=== PATIENT | female | born 1980 | race Caucasian/White ===

== ENCOUNTER 2025-04-25 12:03 | Outpatient (AMB) | payer SELFPAY ==
--- NOTE | 2025-04-25 11:52 | MHC.PC.OV ---
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 Required: No Accompanied by: Self / Same As Patient Allergies No Known Allergies Allergy (Verified 04/25/25 12:09) Medication List - Last Reconciled 04/25/25 by Adrienne Kenny PA-C No Known Home Meds Tobacco use date assessed: 04/25/25 Dental Screening Dental Screen Date: 04/25/25 Did you have a dental visit in the last 12 months?: Yes Did you have a dental problem in the last 6 months where you did not have access to dental care?: No Was dental information given to patient?: Patient has dentist HPI establish care HPI Details The patient is a 44-year-old female presenting to establish a new primary care provider, for a routine health evaluation, emphasizing colon cancer screening due to a significant family history. Her father from colon cancer at age 58. She acknowledges her last comprehensive medical check-up was years ago but regularly attends appointments with a auto self service station attendant, dentist, and airline captain. Previously diagnosed with Mediterranean Anemia, iron supplementation has proven ineffective in managing her condition due to absorption issues. Her history of seizures, notably a grand mal seizure at age 9, was medically managed for a short duration without recurrence. The patient currently uses a Mirena IUD for contraception, slated for replacement soon. She has a childhood history of anemia requiring no current building rigger involvement. Her mother, a patient at the clinic, is treated for hypertension. There is a broad history of cancer within the family, with colon cancer explicitly noted. Social History - Family Status: Patient has four children. - Family Planning: Current use of Mirena IUD for contraception. - Health Maintenance: Regular appointments with auto self service station attendant, dentist, and airline captain. - Family Health Influence: Mother encourages cancer screening due to the patient's family history. [facility] Medical History Grand mal seizure Mediterranean anemia Class 1 obesity with body mass index (BMI) of 33.0 to 33.9 in adult Presence of Mirena IUD History of mammogram (~02/2025) Establishing care with new doctor, encounter for Family history of colon cancer Family History Father Diabetes Colon cancer Mother BP (high blood pressure) Social History Housing: House Alcohol intake: current Alcohol intake frequency: a few times a week Patient Tobacco Use Status: Never used Tobacco service: No Current occupational status: employed Cognitive needs: No Hearing needs: No Vision needs: Yes (rx glasses) Questionnaire PHQ-9 Over the last 2 weeks, how often have you been bothered by any of the following problems? 1. Little interest or pleasure in doing things: not at all 2. Feeling down, depressed, or hopeless: not at all 3. Trouble falling or staying asleep, or sleeping too much: not at all 4. Feeling tired or having little energy: not at all 5. Poor appetite or overeating: not at all 6. Feeling bad about yourself - or that you are a failure or have let yourself or your family down: not at all 7. Trouble concentrating on things, such as reading the newspaper or watching television: not at all 8. Moving or speaking so slowly that other people could have noticed. Or the opposite - being so fidgety or restless that you have been moving around a lot more than usual: not at all 9. Thoughts that you would be better off or of hurting yourself in some way: not at all Total score: 0 Depression Screening Interpretation: Negative Depression Screening Done: Yes 29059 - PHQ-9 Billing: Yes Source: Developed by Drs. Kvng Baires, Jessica Hurtado, Dylan Flores and colleagues, with an educational yamileth from [employer]. Thrive Questionnaire Date Thrive assessed: 04/25/25 I am a: Patient What is your living situation today?: I have a steady place to live Within the past 12 months, did the food you bought not last and you didn't have the money to get more?: Never true Within the past 12 months, did you worry whether your food would run out before you got money to buy more?: Never true Do you have trouble paying for medicines?: No Do you have trouble getting transportation to medical appointments?: No Do you have trouble paying your heating and electricity bill?: No Do you have trouble taking care of your child, family member or friend?: No Do you have trouble with day-to-day activities such as bathing, preparing meals, shopping, managing finances, etc.?: No Are you currently unemployed and looking for a job?: No Are you interested in more education?: No Please select the resources that you would like help with: None THRIVE Score: 0 AUDIT C Alcohol Use Questionnaire (AUDIT-C) 1. How often do you have a drink containing alcohol?: 2-3 times a week 2. How many drinks containing alcohol do you have on a typical day when you are drinking?: 1 or 2 3. How often do you have six or more drinks on one occasion?: Never Total Score: 3 Score Reviewed/Action Taken: No BHARATHI-7 AMB Questionnaire BHARATHI-7 Date BHARATHI - 7 assessed: 04/25/25 Feeling nervous, anxious, or on edge: 0 = Not at all Not being able to stop or control worryin = Not at all Worrying too much about different things: 0 = Not at all Trouble relaxin = Not at all Being so restless that it is hard to sit still: 0 = Not at all Becoming easily annoyed or irritable: 0 = Not at all Feeling afraid as if something awful might happen: 0 = Not at all Total BHARATHI-7 score (0-4 normal; 5-9 mild; 10-14 moderate; 15-21 severe): 0 Source: Developed by Drs. Kvng Baires, Jessica Hurtado, Dylan Flores and colleagues, with an educational yamileth from [employer]. BHARATHI-7 Assessment Billing BHARATHI-7 Assessment Tool: BHARATHI-7 Assessment 59622 Review of Systems Const Details: - Hematological: Reports Mediterranean Anemia. - Neurological: Denies further seizures since age 9. - Cardiovascular: Denies chest pain, shortness of breath. - Gastrointestinal: Denies changes in bowel habits, melena or hematochezia. - Musculoskeletal: Reports shortness of breath when climbing stairs, attributed to being out of shape. Physical exam (Primary Care) Vital Signs: Last Vital Signs Temp 97.8 F 04/25/25 11:55 Pulse 56 04/25/25 11:55 Resp 14 04/25/25 11:55 BP 122/62 04/25/25 11:55 Pulse Ox 99 04/25/25 11:55 Oxygen Delivery Method Room Air 04/25/25 11:55 Care Plan Goal for BP management: <130/90 at Goal BMI result Body Mass Index 33.6 BMI Assessment/Plan discussion: High BMI High, discussed plan: lifestyle, weight reduction, dietary, physical activity and alcohol moderation Tobacco/Smoking Status: Tobacco use Status Tobacco use date assessed 04/25/25 04/25/25 12:01 Patient Tobacco Use Status Never used Tobacco 04/25/25 12:01 PHQ-9: PHQ-9 Score PHQ-9: Total score 0 04/25/25 12:01 Depression Screening Interpretation: Negative Thrive Assessment: Date of Thrive Assessment Date Thrive assessed 04/25/25 04/25/25 12:01 Const Other: Appearance: Alert. Oriented X3. No acute distress. Head: Normal external exam. Normocephalic. Atraumatic. Eyes: Pupils are equal, round, and reactive to light. Extraocular movements intact. Conjunctiva and sclera normal. Eyelids normal. Ears: External auditory canal normal. Tympanic membranes normal. Canals are completely clear, no wax noted. Throat: Pharynx normal. Uvula midline. Moist mucous membranes. Neck: Normal inspection. Neck supple. Full range of motion. No adenopathy. Thyroid Normal. No meningeal signs. No neck mass noted. Cardiovascular: Normal heart rate and rhythm. Heart sound normal. No murmurs noted. Pulses normal throughout. Respiratory: No respiratory distress. Painless inspiration. Breath sounds normal. No wheezes/rales/rhonchi noted. Chest nontender. No accessory muscle usage noted or decreased air movement noted. Abdomen: Soft and nontender. Bowel sounds normal in all 4 quadrants. No distention noted. No organomegaly noted. No visible injury noted. Back: No costovertebral angle tenderness. Full range of motion noted. Skin: Skin warm and dry. Normal skin color. Normal skin turgor. No rashes/lesions/lacerations noted. Extremities: No lower extremity edema. Extremities exhibit normal range of motion. Extremities nontender. Neuro: Oriented X 3. No motor deficit. No sensory deficit. Reflexes normal. Coding Level of Care Code New Pt Level 4 (81506) Complex EM visit Add On G2211 Diagnoses Establishing care with new doctor, encounter for Z76.89 Family history of colon cancer Z80.0 Presence of Mirena IUD Z97.5 Mediterranean anemia D56.9 Grand mal seizure G40.409 Class 1 obesity with body mass index (BMI) of 33.0 to 33.9 in adult E66.811; Z68.33 Additional Codes PHQ-9 - 04856 - PHQ-9 Billing: Yes ([id number]) BHARATHI-7 Assessment Billing - BHARATHI-7 Assessment Tool: BHARATHI-7 Assessment 43284 ([id number]) Assessment & Plan Assessment & Plan (1) Establishing care with new doctor, encounter for: Code(s): Z76.89 - Persons encountering health services in other specified circumstances Category: Medical (2) Family history of colon cancer: Comment: Father at age 58 Code(s): Z80.0 - Family history of malignant neoplasm of digestive organs Category: Medical Plan: Refer to gastroenterology for a colonoscopy to address family history of colon cancer. (3) Presence of Mirena IUD: Code(s): Z97.5 - Presence of (intrauterine) contraceptive device Category: Social Hx Plan: Monitor and plan for the replacement of Mirena IUD in the coming year. Condition is chronic and stable will continue to monitor. (4) Mediterranean anemia: Code(s): D56.9 - Thalassemia, unspecified Category: Medical Plan: Conduct an iron panel and evaluate CBC to assess Mediterranean Anemia management. Potential referral to building rigger if severe anemia is confirmed. (5) Grand mal seizure: Comment: as a child Code(s): G40.409 - Other generalized epilepsy and epileptic syndromes, not intractable, without status epilepticus Category: Medical Plan: Monitor neurological status, no active management due to absence of recent episodes. Patient's last seizure was at age 9. Will continue to monitor. (6) Class 1 obesity with body mass index (BMI) of 33.0 to 33.9 in adult: Code(s): E66.811 - Obesity, class 1; Z68.33 - Body mass index [BMI] 33.0-33.9, adult Category: Medical Plan: Patient to improve diet and exercise regimen. Condition is chronic and stable continue to monitor. Plan Plan Patient was informed and verbally consented to the use of an ambient scribe for clinic note documentation during this visit. 1. Mediterranean Anemia Conduct an iron panel and evaluate CBC to assess Mediterranean Anemia management. Potential referral to building rigger if severe anemia is confirmed. 2. History Of Grand Mal Seizure Monitor neurological status, no active management due to absence of recent episodes. 3. Family History Of Colon Cancer Refer to gastroenterology for a colonoscopy to address family history of colon cancer. 4. Use Of Mirena Iud For Control Monitor and plan for the replacement of Mirena IUD in the coming year. During the visit, we discussed the patient's family history of colon cancer, particularly her father's case, which heightens her risk and necessitates early screening. I informed her of the importance of a colonoscopy given her familial predisposition. We reviewed her Mediterranean Anemia management, acknowledging the limitation of iron absorption and the necessary hematologic evaluation through additional laboratory work. The discussion also included the maintenance plan for her Mirena IUD, emphasizing the need for future replacement. I reassured the patient regarding her history of grand mal seizure, noting the absence of recurrence and explaining that current management involves monitoring for any potential future symptoms. Orders: Orders C Reactive Protein Today Z00.00 - Encounter for general adult medical examination without abnormal findings Complete Blood Count Auto Diff Today Z00.00 - Encounter for general adult medical examination without abnormal findings Comprehensive [place]. Panel Fast Today Z00.00 - Encounter for general adult medical examination without abnormal findings IRON PROFILE Today D64.9 - Anemia, unspecified Liver Panel Today Z00.00 - Encounter for general adult medical examination without abnormal findings Ferritin Today D64.9 - Anemia, unspecified TSH reflex Free T4 Today Z00.00 - Encounter for general adult medical examination without abnormal findings Vitamin D 25-OH Total Today Z00.00 - Encounter for general adult medical examination without abnormal findings Hemoglobin A1c Today Z00.00 - Encounter for general adult medical examination without abnormal findings Lipid Panel Today Z00.00 - Encounter for general adult medical examination without abnormal findings Vitamin B12 and Folate Today Z00.00 - Encounter for general adult medical examination without abnormal findings Magnesium Today Z00.00 - Encounter for general adult medical examination without abnormal findings Referrals Gastroenterology Referral Z12.11 - Encounter for screening for malignant neoplasm of colon, Z76.89 - Persons encountering health services in other specified circumstances, Z80.0 - Family history of malignant neoplasm of digestive organs, Z92.89 - Personal history of other medical treatment Medications: New levonorgestrel (Mirena) intrauterine Patient Instructions: - Schedule and attend a colonoscopy appointment for colon cancer screening as advised. - Go to the lab for blood work, including CBC and iron panel, after fasting for 10-12 hours. - Monitor for any neurological symptoms or recurrence of seizures and report immediately. - Continue with regular ophthalmologic and dental care appointments. - Inform us of any changes in symptoms or new health concerns. - Follow up on the replacement or removal date of the Mirena IUD.
[2025-04-25 11:55] VITALS: BP 122/62; PULSE 56; RESP 14; TEMP 36.6; O2SAT 99; BMI 33.6
== END 2025-04-25 12:22 | disposition home or self-care (01) ==
LOC: HO.HMCSH 12:03
PROVIDERS: PCP Internal Medicine; Visit Provider Physician Assistant Medical
DX: Z76.89 Persons encountering health services in other specified circumstances (principal); Z80.0 Family history of malignant neoplasm of digestive organs; Z97.5 Presence of (intrauterine) contraceptive device; D56.9 Thalassemia, unspecified; G40.409 Other generalized epilepsy and epileptic syndromes, not intractable, without status epilepticus; E66.811 Obesity, class 1; Z68.33 Body mass index [BMI] 33.0-33.9, adult

== ENCOUNTER → 2025-04-25 12:03 | Outpatient (BNVA) | payer SELFPAY | PROVIDERS: PCP Internal Medicine; Visit Provider Physician Assistant Medical | DX: E66.811 Obesity, class 1 (principal); D56.9 Thalassemia, unspecified; G40.409 Other generalized epilepsy and epileptic syndromes, not intractable, without status epilepticus; D64.9 Anemia, unspecified; Z68.33 Body mass index [BMI] 33.0-33.9, adult; Z80.0 Family history of malignant neoplasm of digestive organs; Z76.89 Persons encountering health services in other specified circumstances; Z97.5 Presence of (intrauterine) contraceptive device | CPT/HCPCS: 96127; 99202 ==

== ENCOUNTER 2025-04-30 08:36 | Outpatient (REF) | payer BC, SELFPAY ==
[2025-04-30 11:10] LABS: MANUAL DIFF FLAG NO
[2025-04-30 11:17] LABS: Basophils Absolute Auto 0.1 X10*3/uL (0.0-0.2); Basophils Percent Auto 0.7 % (0-2); Eosinophils Absolute Auto 0.1 X10*3/uL (0.0-0.4); Eosinophils Percent Auto 1.5 % (0-4); Hematocrit 31.7 % (37.0-47.0); Hemoglobin 9.9 g/dl (12.0-16.0); Imm Gran Abs Auto 0.04 X10*3/uL (0.00-0.03); Imm Gran Pct Auto 0.5 % (0.0-0.4); Lymphocytes Absolute Auto 2.3 X10*3/uL (1.2-4.9); Lymphocytes Percent Auto 29.7 % (20-40); Mean Corpuscular HGB Conc 31.2 g/dl (31.0-35.0); Mean Corpuscular Hemoglobin 20.1 pg (27.0-33.0); Mean Platelet Volume 10.2 fL (9.4-12.3); Monocytes Absolute Auto 0.5 X10*3/uL (0.1-1.2); Monocytes Percent Auto 6.7 % (2-11); Neutrophils Absolute Auto 4.6 x10*3/uL (2.0-8.3); Neutrophils Percent Auto 60.9 % (45-73); Platelet Count 301 X10*3/uL (160-400); Red Blood Count 4.93 X10*6/uL (4.20-5.50); Red Cell Distribution Width 15.7 % (11.0-16.0); White Blood Count 7.6 X10*3/uL (4.8-10.8)
[2025-04-30 11:22] LABS: Mean Corpuscular Volume 64.3 fL (80.0-98.0)
[2025-04-30 11:30] LABS: Estimated Average Glucose 105 mg/dL; Hemoglobin A1c % 5.3 % (<6.0)
[2025-04-30 11:38] LABS: Alanine Aminotransferase 53 U/L (0-31); Albumin Level 4.6 g/dL (3.5-5.0); Alkaline Phosphatase 61 U/L (39-117); Anion Gap 8 (12-20); Aspartate Amino Transferase 30 U/L (5-31); Bilirubin Direct 0.3 mg/dL (0.0-0.5); Bilirubin Total 1.1 mg/dL (0.0-1.0); Blood Urea Nitrogen 13 mg/dL (9-16); C Reactive Protein 0.12 mg/dL (< or = 0.50); Calcium 9.6 mg/dL (8.4-10.2); Carbon Dioxide 27 mmol/L (22-29); Chloride 105 mmol/L (96-108); Cholesterol 148 mg/dL (<200); Estimated Glomerular Filt Rate > 60; Glucose Fasting 106 mg/dL (60-99); HDL Cholesterol 40 mg/dL (>40); Iron 124 mcg/dL (30-160); LDL Cholesterol Calculated 90 mg/dL (<100); Magnesium 1.8 mg/dL (1.6-2.6); Percent Iron Saturation 47 % (15-50); Potassium 4.4 mmol/L (3.3-5.1); Sodium 136 mmol/L (135-145); Total Iron Binding Capacity 265 mcg/dL (228-428); Total Protein 7.4 g/dL (6.5-8.0); Triglycerides 92 mg/dL (<150); Unsaturated Iron Binding 141 ug/dL
[2025-04-30 11:59] LABS: Folate 8.1 ng/mL (> or = 4.0); Vitamin B12 421 pg/mL (200-900)
[2025-04-30 12:05] LABS: Ferritin 866 ng/mL (10-250); TSH reflex Free T4 0.57 uIU/mL (0.32-4.0); Vitamin D 25-OH Total 22.3 ng/mL (>30)
== END 2025-04-30 08:37 | disposition home or self-care (01) ==
LOC: HO.HMGCLDS 08:36
PROVIDERS: PCP Physician Assistant Medical; Visit Provider Physician Assistant Medical
DX: Z00.00 Encounter for general adult medical examination without abnormal findings (principal); D64.9 Anemia, unspecified; Z13.1 Encounter for screening for diabetes mellitus; Z13.220 Encounter for screening for lipoid disorders
CPT/HCPCS: 36415; 80053; 80061; 80076; 82248; 82306; 82607; 82728; 82746; 83036; 83540; 83735; 84443; 85025; 86140

== ENCOUNTER 2025-07-01 14:15 | Outpatient (AMB) | payer BC, SELFPAY ==
--- NOTE | 2025-07-01 14:32 | A.OFFVIS_ITS ---
Vital Signs 07/01/25 14:38 Height 5 ft 3 in Weight 190 lb BMI 33.7 BP 113/66 Blood Pressure Location Lt brachial Position Sitting Pulse 70 Pulse Oximetry (%) 97 Oxygen Delivery Method Room Air Intake Visit Reasons: [place] screening Intake Note: Patient new consult for pre Colonoscopy screening. Patient denies any GI issues. Yarn Inspector Required: No Accompanied by: Self / Same As Patient Allergies No Known Allergies Allergy (Verified 07/01/25 14:32) HPI HPI [place] screening: Details: Patient is a 44-year-old female with PMH of obesity and vitamin-D deficiency. Karely presents for pre-colonoscopy screening with no gastrointestinal complaints. She reports regular daily bowel movements without constipation, diarrhea, or blood. She denies abdominal pain, nausea, vomiting, change in appetite, or weight loss apart from normal fluctuations. She has no history of heartburn or difficulty swallowing. A prior blood test revealed anemia, which she states is genetic and related to her father's history. She also has a documented vitamin D deficiency for which she is taking supplementation, as well as folic acid. There is a significant family history of colon cancer in her father, who was diagnosed at age 58 and shortly after. Karely denies other systemic symptoms or relevant comorbid conditions that may influence gastrointestinal health. Social hx: -Diet: No specific restrictions reported; enjoys food with typical fluctuations in weight (~5 lbs). -Alcohol Use: Consumes alcohol ~3 days/week, typically one glass of wine. Rarely two glasses. Consciously monitors intake due to father's history of alcoholism. -Tobacco Use: None. Reports both parents smoked; chose to abstain. -Drug Use: Denies recreational or illicit drug use, including marijuana. - family hx as below -denies personal hx of CA - denies significant cardiopulmonary history -tolerated anesthesia in the past without difficulty. [facility] Medical History (Updated 07/01/25 @ 14:36 by Margarita Mancilla CNP) Colon cancer screening Vitamin D deficiency Elevated ferritin level Grand mal seizure Mediterranean anemia Class 1 obesity with body mass index (BMI) of 33.0 to 33.9 in adult Presence of Mirena IUD History of mammogram (~02/2025) Establishing care with new doctor, encounter for Family history of colon cancer Surgical History [place] teeth removed Family History Father Colon cancer Diabetes Mother BP (high blood pressure) Maternal Grandfather Cancer Social History Household Members: Spouse and Family Housing: House Alcohol intake: current Alcohol intake frequency: a few times a week Patient Tobacco Use Status: Never used Tobacco service: No Current occupational status: employed Cognitive needs: No Hearing needs: No Vision needs: Yes (rx glasses) Review of Systems Const Reports as per HPI ENT Reports as per HPI Card Reports as per HPI Resp Reports as per HPI GI Reports as per HPI Reports as per HPI Physical Exam Vital Signs: Last Vital Signs Pulse 70 07/01/25 14:38 BP 113/66 07/01/25 14:38 Pulse Ox 97 07/01/25 14:38 Oxygen Delivery Method Room Air 07/01/25 14:38 BMI result Body Mass Index 33.7 Const General: healthy appearing, no acute distress and well developed Nutritional Appearance: average body habitus Orientation/consciousness: patient oriented x3 HEENT Head: Yes normal to inspection, Yes normocephalic and Yes atraumatic Face and sinus: Yes normal facial exam Eyes General: appearance normal, both eyes and all related structures Neck Neck: Yes normal visual inspection Resp Effort & Inspection: normal respiratory effort, able to speak in complete sentences, no tracheal deviation and symmetric chest movement Cardio Jugular venous distension: no JVD Neuro General: patient oriented x3 Gait exam (Neuro): Normal gait present Psych Appearance: grossly normal Mental Status: mental status grossly normal Speech and movement: Normal speech and movement present Affect: normal affect Attitude: cooperative Thought process: Normal thought process present Thought content: Normal thought content present Insight: Good insight present (Psych) Judgement: Good judgement present (Psych) Assessment & Plan Assessment & Plan (1) Colon cancer screening: Code(s): Z12.11 - Encounter for screening for malignant neoplasm of colon Category: Medical Plan: Due for index screening colonoscopy. No alarm features but with family history of colorectal cancer (father diagnosed at age 58). Medications: -prescriptions for laxative tablets and MiraLax sent to pharmacy; instructions for Gatorade purchase and clear liquid diet given. Patient educated on scheduling process, procedure preparation, including avoiding certain foods and ensuring clear liquid intake Advised on necessity for ride post-procedure due to sedation. Plan Follow up after colonoscopy as warranted or sooner if needed. Time: I spent a total of 15 minutes on the date of encounter which includes: Preparing to see the patient (reviewed previous documentation, test results and medical history) Performing a medically appropriate exam and/or evaluation Ordering medications, tests, and procedures Documenting clinical information in the health record Medications: New bisacodyl (Dulcolax (bisacodyl)) Take four tablets pre colonoscopy instructions 20 mg (4 x 5 mg) PO ONCE 4 tabs 0RF 1 day polyethylene glycol 3350 (Miralax) per colonoscopy prep instructions 238 grams PO ONCE 238 grams 0RF Coding Level of Care Code New Pt New Pt Level 2 (31277) Patient Type New Diagnoses Colon cancer screening Z12.11
[2025-07-01 14:38] VITALS: BP 113/66; PULSE 70; O2SAT 97; BMI 33.7
== END 2025-07-01 14:49 | disposition home or self-care (01) ==
LOC: HO.HGI 14:16
PROVIDERS: PCP Physician Assistant Medical; Visit Provider Nurse Practitioner Family
DX: Z01.818 Encounter for other preprocedural examination (principal); Z12.11 Encounter for screening for malignant neoplasm of colon
CPT/HCPCS: S0285